=== PATIENT | male | born 1940 | race African-American/Black ===

== ENCOUNTER 2017-09-25 06:18 | Observation (INO) | payer MEDICARE ==
[2017-09-24 08:58] LABS: BASOPHILS % 0.5 % (0.0-1.0); EOSINOPHILS % 0.5 % (0.0-6.0); HEMATOCRIT 35.2 % (38.2-49.6); HEMOGLOBIN 11.9 g/dL (14.0-18.0); LYMPHOCYTES # (AUTO) 1.8 (1.0-3.2); LYMPHOCYTES % 30.4 % (18.0-39.1); MEAN CORPUSCULAR HEMOGLOBIN 28.9 pg (28-32); MEAN CORPUSCULAR HGB CONC 33.8 g/dL (31-35); MEAN CORPUSCULAR VOLUME 85.4 fL (81-99); MONOCYTES # (AUTO) 0.4 (0.2-0.8); NEUTROPHILS # (AUTO) 3.7 (2.1-6.9); NEUTROPHILS % 62.3 % (38.7-80.0); PLATELET COUNT 207 x10e3/uL (140-360); RED BLOOD COUNT 4.12 x10e6/uL (4.3-5.7); RED CELL DISTRIBUTION WIDTH 13.5 % (11.7-14.4)
[2017-09-24 09:07] LABS: INR 0.98; PARTIAL THROMBOPLASTIN TIME 31.1 seconds (23.8-35.5); PROTHROMBIN TIME 12.2 seconds (11.9-14.5)
[2017-09-24 09:12] LABS: ANION GAP 13.5 mmol/L (8-16); BLOOD UREA NITROGEN 17 mg/dL (7-26); BUN/CREATININE RATIO 17 (6-25); CALCIUM 9.9 mg/dL (8.4-10.2); CARBON DIOXIDE 27 mmol/L (22-29); CHLORIDE 108 mmol/L (98-107); CREATININE, SERUM 1.02 mg/dL (0.72-1.25); EST GLOMERULAR FILTRATION RATE > 60 ML/MIN (60-); GLUCOSE 107 mg/dL (74-118); POTASSIUM 4.5 mmol/L (3.5-5.1); SODIUM 144 mmol/L (136-145)
--- NOTE | 2017-09-24 09:45 | Diagnostic Imaging Report ---
PROCEDURE: X-RAY CHEST, TWO VIEWS COMPARISON: 06/29/2012. INDICATIONS: PREOPERATIVE CHEST XRAY FOR CERVICAL SPINE SURGERY FINDINGS: The lungs are well-inflated. No focal airspace consolidation, pleural effusion, or pneumothorax. Stable cardiomediastinal contour with tortuosity and atherosclerotic calcification of the thoracic aorta. Otherwise normal heart size. No pulmonary edema. No acute osseous abnormality. Probable healed fracture deformity of the lateral right seventh rib unchanged. CONCLUSION: No acute cardiopulmonary abnormality. Dictated by: Evan Mistry M.D. on 09/24/2017 at 9:47 Electronically approved by: Evan Mistry M.D. on 09/24/2017 at 9:47
[~2017-09-25] VITALS: Ht 182.9 cm; Wt 84.1 kg
[~2017-09-25 06:18] MED LIST: ASPIR 8181 MG; ATORVASTATIN CA10 MG PO; FINASTERIDE PO; GABAPENTIN PO; GLIMEPIRIDE4 MG PO; HUMULIN SQ; LEVOTHYROXINE125 MCG PO; LOSARTAN-HCTZ1 EAC2 PO; METFORMIN HCL500 MG PO; PIOGLITAZONE15 MG PO
[2017-09-25] MEDS ORDERED: CEFAZOLIN SOD 1 GM VIAL ONE (06:19)
--- OUTSIDE RECORDS SUMMARY | 2017-09-25 06:21 | XMS REPORT ---
Author Author [facility] Address Unknown Phone Unavailable Care Team Providers Care Small Business Director Name Role Phone TATI RAYO Unavailable Unavailable Problems This patient has no known problems. Allergies, Adverse Reactions, Alerts This patient has no known allergies or adverse reactions. Medications This patient has no known medications. Results Test Description Test Time Test Comments Text Results Atomic Results Result Comments CHEST 2 VIEWS [place] [address] Patient Name: ZAID DSOUZA MR #: [id number] : 1940 Age/Sex: 77/M Req #: [id number] Adm Physician: Ordered by: TATI RAYO MD Report #: [id number] Location: OR Room/Bed: Procedure: [id number] DX/CHEST 2 VIEWS Exam Date: 09/24/17 Exam Time : 0855 REPORT STATUS: Signed PROCEDURE: X-RAY CHEST, TWO VIEWS COMPARISON: 06/29/2012. INDICATIONS: PREOPERATIVE CHEST XRAY FOR CERVICAL SPINE SURGERY FINDINGS: The lungs are well-inflated. No focal airspace consolidation, pleural effusion, or pneumothorax. Stable cardiomediastinal contour with tortuosity and atherosclerotic calcification of the thoracic aorta. Otherwise normal heart size. No pulmonary edema. No acute osseous abnormality. Probable healed fracture deformity of the lateral right seventh rib unchanged. CONCLUSION: No acute cardiopulmonary abnormality. Dictated by: Benjamin Flores M.D. on 2017 at 9:47 Electronically approved by: Benjamin Flores M.D. on 09/24/2017 at 9:47 Dictated By: BENJAMIN FLORES MD 6 Transcribed By: LAZARO on 09/24/17946 COPY TO: TATI RAYO MD
[2017-09-25] MEDS ORDERED: LACTATED RINGER'S 1,000 ML ONE (06:22)
[2017-09-25] MEDS ORDERED: GELATIN SPONGE SZ 100 ONE (06:37)
[2017-09-25] MEDS ORDERED: THROMBIN FOR SOLN 5,000 UNIT VIAL ONE (06:37)
[2017-09-25] MEDS ORDERED: BACITRACIN 50,000 UNIT VIAL ONE (06:37)
[2017-09-25] MEDS ORDERED: BUPIVACAINE 0.5%/EPI 30 ML SDV INJ ONE (06:37)
[2017-09-25] MEDS ORDERED: LIDOCAINE HCL (LTA) 4 ML SOLN ONE (06:44)
[2017-09-25] MEDS ORDERED: ACETAMINOPHEN 1000 MG/100 ML 100 ML IV ONE (06:44)
[2017-09-25] MEDS ORDERED: ONDANSETRON HCL INJ 2 MG/ML VIAL IV PRN (09:15)
[2017-09-25] MEDS ORDERED: ACETAMINOPHEN 325 MG TAB PO PRN (09:15)
[2017-09-25] MEDS ORDERED: HYDROMORPHONE 2MG/ML INJ IV PRN (09:15)
[2017-09-25] MEDS ORDERED: MAGNESIUM/ALUMINUM/SIMETHICONE 30 ML UDC PO PRN (09:15)
[2017-09-25] MEDS ORDERED: CEPACOL SORE THROAT LOZENGES PO PRN (09:15)
[2017-09-25] MEDS ORDERED: PROMETHAZINE HCL (IM) 25 MG/ML VIAL IM PRN (09:15)
[2017-09-25] MEDS ORDERED: DEXTROSE 50% SYRINGE 50 ML IV PRN (09:15)
[2017-09-25] MEDS ORDERED: MORPHINE SULFATE 5 MG/ML VIAL IM PRN (09:15)
--- NOTE | 2017-09-25 09:56 | Operative Report ---
DATE OF PROCEDURE: September 25, 2017 PREOPERATIVE DIAGNOSIS: C6-C7 disk herniation with radiculopathy, M50.123. POSTOPERATIVE DIAGNOSIS: C6-C7 disk herniation with radiculopathy, M50.123. PROCEDURES 1. C6-C7 anterior cervical diskectomy and microsurgical osteophyte resection and allograft fusion, 09568. 2. Preparation of MTF cortical cancellous allograft, 59093. 3. C6-C7 anterior cervical plating with Synthes ZPN plate, 59172. ANESTHESIA: General. INDICATIONS: Patient is a 77-year-old man who presents with severe right C7 radiculopathy due to C6-C7 disk herniation. He was taken to the operating room for anterior cervical decompression and fusion. PROCEDURE: After induction of general anesthesia, the patient was placed on the operating table in the supine position. The right side of the neck was prepped and draped in a sterile fashion. The fluoroscopic C-arm was positioned in cross-table lateral orientation. A transverse incision was created on the right side of the neck superimposed on the C7 disk space as determined by fluoroscopy. The platysma was divided in line with the incision. A subplatysmal dissection was carried out. An avascular plane of dissection was developed medial to the sternocleidomastoid muscle. It was followed medial to the carotid sheath to the anterior border of the cervical spine. The deep cervical fascia was opened. The esophagus was retracted to the left. The attachments of the longus coli muscles to the anterolateral aspects of the vertebral bodies of C6 and C7 were divided. The anterior longitudinal ligament was resected. [place] posts were inserted into C6 and C7. The [place] distractor was used to distract the disk space. The anterior annulus of the disk was incised with a #11 blade. The contents of the disk were thoroughly evacuated with angled curettes and pituitary rongeurs. The posterior osteophytes were meticulously drilled with a 2 mm cutting bur until they were completely removed. The posterior annulus of the disk, herniated disk material and the posterior longitudinal ligament were resected layer by layer until the dura was fully exposed and decompressed. A large amount of herniated disk was retrieved from the right C7 neural foramen. The medial aspect the uncinate process was resected to expose the origin of the C7 nerve root on the right side. After satisfactory decompression had been achieved, the disk space was sized and found to be 9 mm in height. A piece of MTF cortical cancellous allograft measuring 9 mm in thickness was selected and prepared in saline, and loaded onto a Synthes ZPN plate. The construct was inserted into the C6-C7 under distraction under fluoroscopic guidance. The distraction was released. The distraction posts were removed. The plate was then screwed to the end-plates of C6 and C7 with 2 pairs of 14-mm screws. All screws were locked. An excellent construct was obtained. The wound was copiously irrigated with Bacitracin solution. Meticulous hemostasis was secured. Retractor was removed. The platysma was closed with 3-0 Vicryl sutures. The skin was closed with 4-0 Monocryl suture in a subcuticular fashion. Steri-Strips and dressing were applied. The patient was awakened, extubated and taken to the postanesthesia care unit in stable condition. No intraoperative complications were encountered. Estimated blood loss was 30 cc. Job#: [id number] [place]
[2017-09-25 10:10] VITALS: BP 165/86
[2017-09-25] MEDS: CARISOPRODOL 350 MG TAB PO PRN ×2 (10:10→19:59)
[2017-09-25] MEDS: OXYCODONE/ACETAMINOPHEN 5-325 1 EACH TABLET PO PRN ×2 (10:10→20:00)
[2017-09-25 10:23] VITALS: BP 165/86
[2017-09-25] MEDS: LACTATED RINGER'S 1,000 ML IV SCH ×2 (10:30→15:51)
[2017-09-25 11:08] VITALS: BP 146/80
[2017-09-25 11:26] VITALS: BP 146/80
[2017-09-25] MEDS: CEFAZOLIN SOD 1 GM VIAL IV SCH ×2 (13:59→22:11)
[2017-09-25] MEDS ORDERED: CEFAZOLIN SOD 1 GM/NS 50ML 50 ML IV SCH (14:00)
[2017-09-25 15:23] VITALS: BP 142/77
[2017-09-25] MEDS: GLIMEPIRIDE 2 MG TAB PO SCH (16:32)
[2017-09-25] MEDS ORDERED: NON-FORMULARY MEDICATION (Glimepiride 4 MG) PO SCH (17:00)
[2017-09-25] MEDS ORDERED: PROPOFOL IV EMULSION 10 MG/ML 20 ML VIAL ONE (18:02)
[2017-09-25] MEDS ORDERED: DESFLURANE 240 ML BTL INH ONE (18:02)
[2017-09-25] MEDS ORDERED: DEXAMETHASONE SOD PHOS INJ 4 MG/ML VIAL ONE (18:02)
[2017-09-25] MEDS ORDERED: LIDOCAINE HCL 2% LOCAL INJ 5 ML SDV VIAL INJ ONE (18:02)
[2017-09-25] MEDS ORDERED: LIDOCAINE HCL 2% JELLY 5 ML TUBE ONE (18:02)
[2017-09-25] MEDS ORDERED: ONDANSETRON HCL INJ 2 MG/ML VIAL ONE (18:02)
[2017-09-25] MEDS ORDERED: ROCURONIUM BROMIDE 10 MG/ML 5ML VIAL ONE (18:02)
[2017-09-25] MEDS ORDERED: FENTANYL CITRATE/PF 100MCG/2 ML INJ ONE (18:25)
[2017-09-25 20:00] VITALS: BP 142/71
[2017-09-25] MEDS ORDERED: METFORMIN HCL 500 MG TAB PO SCH (21:00)
[2017-09-25] MEDS ORDERED: ATORVASTATIN 10 MG TAB PO SCH (21:00)
[2017-09-25] MEDS ORDERED: HUMULIN 70/30 VIAL SQ SCH (21:00)
[2017-09-25] MEDS ORDERED: ZOLPIDEM TARTRATE 5 MG TAB PO PRN (21:00)
[2017-09-26] VITALS: BP 137/82
[2017-09-26] MEDS: LACTATED RINGER'S 1,000 ML IV SCH (01:44)
[2017-09-26 04:00] VITALS: BP 144/81
[2017-09-26] MEDS ORDERED: LEVOTHYROXINE SODIUM 125 MCG TAB PO SCH (06:00)
[2017-09-26] MEDS: CEFAZOLIN SOD 1 GM VIAL IV SCH (06:17)
[2017-09-26] MEDS: CARISOPRODOL 350 MG TAB PO PRN (06:18)
[2017-09-26] MEDS: OXYCODONE/ACETAMINOPHEN 5-325 1 EACH TABLET PO PRN (06:18)
[2017-09-26 07:22] LABS: CHOL/HDL RATIO 3.6 (3.9-4.7)
--- NOTE | 2017-09-26 07:24 | Diagnostic Imaging Report ---
Cervical spine series, 09/26/2017 Clinical history: C6-C7 surgery Comparison: None Technique: AP and lateral view cervical spine Findings: Cervical spine evaluated from the skull base to the cervicothoracic junction. Anterior discectomy with interbody fixation at C6-C7. Expected regional postsurgical changes including anterior cervical soft tissue swelling and gas. C6-C7 in anatomic alignment. Disc space narrowing at C4-C5 and C5-C6 with associated reversal of normal lordosis, facet arthropathy and uncovertebral sclerosis. Impression: Expected postoperative sequela of C6-C7 discectomy and anterior interbody fusion. No acute abnormality. Anatomic alignment at C6-C7. This report was generated with voice-recognition technology. 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 Please interpret accordingly and contact a radiologist if there are any questions regarding the report. Signed by: Dr. Eamon Marroquin M.D. on 09/26/2017 7:20 AM
[2017-09-26 08:00] VITALS: BP 129/72
[2017-09-26] MEDS ORDERED: METFORMIN HCL 500 MG TAB PO SCH (08:00)
--- NOTE | 2017-09-26 08:06 | History and Physical ---
PRIMARY CARE PHYSICIAN: Dr. Murphy Mayen CHIEF COMPLAINT: Neck pain and right arm pain, for elective management of cervical stenosis. HISTORY OF PRESENT ILLNESS: This is a 77-year-old man who developed right arm/right shoulder discomfort. Imaging showed C6-C7 severe right neuroforaminal stenosis and moderate C3-C4, C4-C5, C5-C6 spinal stenosis. The patient was referred to Dr. Richards, and now he is here for elective procedure. The patient underwent cervical C6-C7 diskectomy and is resting comfortably in bed. Pain is controlled. Denies any chest pain or shortness of breath. PAST MEDICAL HISTORY: Diabetes mellitus, type 2, hypertension, hyperlipidemia, BPH, diabetic neuropathy, hypothyroidism, overweight state, internal hemorrhoids, right cervical radiculopathy, C6-C7 severe neuroforaminal stenosis, moderate C3-C4, C4-C5, C5-C6 spinal stenosis, deficiency. PAST SURGICAL HISTORY: Left toe bone spur, cyst removal behind left ear, thyroid ablation with Iodine. ALLERGIES: NO KNOWN DRUG ALLERGIES. FAMILY HISTORY: Mother at 93. She had a heart attack. Father at 87. He had a heart attack. Brother had diabetes mellitus, type 2. SOCIAL HISTORY: The patient is . He has 1 child. Drinks about 1 beer per month. No cigarettes. He is a retired automotive glass mechanic. MEDICATIONS: Per electronic medical records. REVIEW OF SYSTEMS: Denies any dizziness or chest pain. PHYSICAL EXAMINATION VITAL SIGNS: Reviewed. GENERAL: A tired-appearing man resting in bed. HEENT: Anicteric. He has neck collar in place. CARDIOVASCULAR: Normal S1 and S2. LUNGS: Moderate breath sounds. ABDOMEN: Soft, nontender and nondistended. EXTREMITIES: No edema or calf tenderness. NEUROLOGICAL: He is alert and oriented times 3. Moves all extremities. SKIN: Dry. PSYCHIATRIC: Normal affect. LABS: Reviewed. MEDICATIONS: Reviewed. ASSESSMENT AND PLAN: This is a 77-year-old man with: 1. Cervical stenosis. 2. C6-C7 severe right neuroforaminal stenosis: Status post C6-C7 diskectomy. 3. Diabetes mellitus, type 2. 4. Neck pain. 5. Overweight state. 6. Diabetic neuropathy. 7. Hypertension. 8. Hypothyroidism. PLAN 1. Continue pain control. 2. Physical therapy. 3. Obtain hemoglobin A1c and lipid panel. Last hemoglobin A1c in January 2017 was 9.6. 4. Resume home medications. 5. Possible discharge later today. Defer to neurosurgical team. Job#: [id number] [place]
[2017-09-26] MEDS: GLIMEPIRIDE 2 MG TAB PO SCH (08:34)
[2017-09-26] MEDS ORDERED: FINASTERIDE 5 MG TAB PO SCH (09:00)
[2017-09-26] MEDS ORDERED: LOSARTAN POTASSIUM 100 MG TAB PO SCH (09:00)
[2017-09-26] MEDS ORDERED: ONDANSETRON HCL 4 MG ORAL DISINTEGRATING TAB PO PRN (09:15)
[2017-09-26] MEDS ORDERED: INSULIN ASPART 70/30 100 UNITS/ML VIAL SC SCH (21:00)
[2017-09-26] MEDS ORDERED: HUMULIN 70/30 VIAL SQ SCH (21:00)
== END 2017-09-26 09:29 | disposition home or self-care (01) ==
LOC: OR 06:18 → IMCU 09:36
PROVIDERS: ADMIT Neurological Surgery; ATTEND Neurological Surgery
DX: M50.123 Cervical disc disorder at C6-C7 level with radiculopathy (principal); E78.5 Hyperlipidemia, unspecified; E03.9 Hypothyroidism, unspecified; E11.42 Type 2 diabetes mellitus with diabetic polyneuropathy; E66.3 Overweight; E11.22 Type 2 diabetes mellitus with diabetic chronic kidney disease; I12.9 Hypertensive chronic kidney disease with stage 1 through stage 4 chronic kidney disease, or unspecified chronic kidney disease; N18.9 Chronic kidney disease, unspecified
CPT/HCPCS: 20931; 22551; 22845; 36415 ×3; 71046; 72040; 77003; 80048; 80061; 82948 ×2; 83036; 85025; 85610; 85730; 86850; 86900; 88304; 93005; G0378 ×2; J0690 ×2; J1100; J2001 ×2; J2405; J7120; J2270